=== PATIENT | female | born 1975 | race Two or more races ===

== ENCOUNTER → 2024-12-13 | Outpatient (CLI) | payer MEDICAID, SELFPAY ==
--- NOTE | 2024-12-13 13:30 | XR_ITS ---
Examination: Breast ultrasound, unilateral, right complete Date and time of exam: December 13, 2024 1343 hours INDICATION: Right breast sonogram March 21, 2024 9:00 nodule 5 mm 9:00 nodule 7 mm Technique: Real-time ventura scale ultrasonographic imaging performed right breast including all 4 quadrants as well as nipple retroareolar and axillary region. Findings: 9:00 nodule 7 x 8 mm circumscribed Retroareolar cyst 3 x 4 mm IMPRESSION: BI-RADS Category 2: Benign findings
== END | disposition home or self-care (01) ==
LOC: CDIM 13:16
PROVIDERS: PCP Physician Assistant; Referring Provider Physician Assistant; Visit Provider Physician Assistant
DX: N63.15 Unspecified lump in the right breast, overlapping quadrants (principal); N60.01 Solitary cyst of right breast
CPT/HCPCS: 76641